=== PATIENT | female | born 1995 | race Caucasian/White ===

== ENCOUNTER 2020-12-11 04:41 | Emergency (ER) | payer OTHER ==
[~2020-12-11 04:41] MED LIST: IBUPROFEN800 MG PO; VENTOLIN HFA IN18 GM INH
[2020-12-11] MEDS ORDERED: IMODIUM2 MG PO (05:06)
[2020-12-11] MEDS ORDERED: ONDANSETRON ODT4 MG PO (05:06)
[2020-12-11] MEDS ORDERED: ATARAX25 MG PO (05:06)
[2020-12-11] MEDS ORDERED: BENTYL10 MG PO (05:06)
[2020-12-11] MEDS ORDERED: LIFEMS NALO2 MG/2 ML IN (05:10)
== END 2020-12-11 05:25 | disposition home or self-care (01) ==
LOC: FER 04:41
DX: F11.23 Opioid dependence with withdrawal (principal); F17.200 Nicotine dependence, unspecified, uncomplicated
CPT/HCPCS: 99283

== ENCOUNTER 2021-07-13 04:37 | Emergency (ER) | payer OTHER ==
[~2021-07-13 04:37] MED LIST changes: +ATARAX25 MG PO; +BENTYL10 MG PO; +IMODIUM2 MG PO; +LIFEMS NALO2 MG/2 ML IN; +ONDANSETRON ODT4 MG PO
[2021-07-13 05:11] LABS: BASOPHIL 0.6 % (0-2); EOSINOPHIL 3.2 % (0-5); HCT 43.2 % (37.0-47.0); HGB 14.9 g/dl (12.5-16.0); LYMPHOCYTE 25.7 % (15-48); MCH 29.8 pg (25.0-31.0); MCHC 34.5 g/dL (32.0-36.0); MCV 86.4 fL (78.0-100.0); MONOCYTE 6.4 % (0-12); MPV 9.3 fL (6.0-9.5); NEUTROPHIL 63.9 % (41-80); NRBC 0; PLT 304 K/uL (150-400); RDW 12.6 % (11.5-14.0); WBC 10.2 K/uL (4.0-10.5)
[2021-07-13 05:17] LABS: AMPHETAMINES POSITIVE (NEGATIVE); BARBITURATES NEGATIVE (NEGATIVE); ECSTASY (MDMA) POSITIVE (NEGATIVE); MARIJUANA (THC) NEGATIVE (NEGATIVE); METHADONE NEGATIVE (NEGATIVE); OPIATES NEGATIVE (NEGATIVE); OXYCODONE NEGATIVE (NEGATIVE)
[2021-07-13 05:20] LABS: BILIRUBIN NEGATIVE (NEGATIVE); BLOOD 3+ Ery/uL (NEGATIVE); CLARITY CLEAR (CLEAR); COLOR YELLOW (YELLOW); GLUCOSE (U) NORMAL (NORMAL); LEUKOCYTES NEGATIVE Leu/uL (NEGATIVE); NITRITE NEGATIVE (NEGATIVE); PROTEIN NEGATIVE (NEGATIVE); SPECIFIC GRAVITY >=1.030 (1.001-1.030); UROBILINOGEN 0.2 mg/dL (0.2-1.0)
[2021-07-13 05:28] LABS: CALCIUM OXALATE CRYSTALS TRACE
[2021-07-13 06:03] LABS: ALBUMIN 4.1 g/dL (3.4-5.0); BILIRUBIN - TOTAL 0.3 mg/dL (0.2-1.0); BUN/CREAT RATIO (CALC) 31.5 RATIO; CREATININE 0.54 mg/dL (0.51-0.95); FT4 (FREE T4) 1.2 ng/dL (0.76-1.46); GLOBULIN (CALCULATION) 3.7 g/dL; MAGNESIUM 1.9 mg/dL (1.8-2.4); POTASSIUM 3.5 mmol/L (3.5-5.1); TOTAL PROTEIN 7.8 g/dL (6.4-8.2)
[2021-07-13 06:18] LABS: CORONAVIRUS 2019 SARS-COV-2 NEGATIVE (NEGATIVE); INFLUENZA A NAA NEGATIVE (NEGATIVE)
== END 2021-07-13 13:50 | disposition home or self-care (01) ==
LOC: FER 04:37
PROVIDERS: Internal Medicine
DX: E03.9 Hypothyroidism, unspecified (principal); R00.0 Tachycardia, unspecified; F15.10 Other stimulant abuse, uncomplicated; F17.210 Nicotine dependence, cigarettes, uncomplicated; Z20.822 Contact with and (suspected) exposure to COVID-19
CPT/HCPCS: 36415; 71275; 80053; 80305; 81001; 83605; 83690; 83735; 84145; 84439; 84443; 85025; 93005; J7030; Q9967; U0002

== ENCOUNTER 2021-08-19 01:16 | Emergency (ER) | payer OTHER ==
[2021-08-19] MEDS ORDERED: MEDROL 4MG DOSEP4 MG PO ×2 (02:29→02:30)
== END 2021-08-19 02:35 | disposition home or self-care (01) ==
LOC: FER 01:16
DX: K04.7 Periapical abscess without sinus (principal); F17.210 Nicotine dependence, cigarettes, uncomplicated; Z28.310 Unvaccinated for COVID-19
CPT/HCPCS: J1100